=== PATIENT | female | born 1930 | race Caucasian/White ===

== ENCOUNTER 2019-07-17 16:38 | Observation (INO) ==
[2019-07-17 17:37] LABS: Basophils # 0.1 K/mcL (0.0-0.2); Basophils % 0.9 %; Eosinophils # 0.2 K/mcL (0.0-0.6); Eosinophils % 3.5 %; Hematocrit 41.5 % (35.3-44.9); Immature Granulocytes % 0.4 % (0-4); Lymphocytes # 1.7 K/mcL (0.6-4.6); Lymphocytes % 30.9 %; Mean Corpuscular HGB Conc 33.7 g/dL (31.6-35.5); Mean Corpuscular Hemoglobin 31.8 pg (28.0-33.3); Mean Corpuscular Volume 94.3 fL (83.0-100.0); Mean Platelet Volume 9.6 fL (9.4-12.4); Monocytes # 0.6 K/mcL (0.0-1.3); Monocytes % 10.8 %; Neutrophils # 2.9 K/mcL (1.6-8.9); Platelet Count 177 K/mcL (140-400); Red Cell Distribution Width 13.1 % (11.5-14.5); Segmented Neutrophils % 53.5 %; White Blood Count 5.4 K/mcL (4.3-11.1)
[2019-07-17 17:44] LABS: INR 2.1; Prothrombin Time 23.5 Seconds (9.4-12.1)
[2019-07-17 17:46] LABS: Activated Partial Thrombo Time 37.1 Seconds (26.0-36.0)
[2019-07-17 17:59] LABS: Albumin 3.5 g/dL (3.5-5.7); Albumin/Globulin Ratio 1.1 (1.1-2.2); Bilirubin,Total 1.2 mg/dL (0.3-1.0); Calcium 9.1 mg/dL (8.6-10.3); Globulin 3.1 g/dL (2.4-3.5); Potassium 4.1 mEq/L (3.5-5.1); Total Protein 6.6 g/dL (6.4-8.9)
[2019-07-17 19:30] LABS: Bilirubin,Urine Small (Negative); Blood,Urine Negative (Negative); Clarity,Urine Cloudy (Clear); Color,Urine Dark Yellow (Yellow); Glucose,Urine (UA) Normal (Normal); Ketones,Urine Negative (Negative); Leukocyte Esterase,Urine Negative (Negative); Nitrite,Urine Negative (Negative); PH,Urine 5.5 pH Units (5.0-8.0); Protein,Urine 30 mg/dL (Neg-Trace); Specific Gravity,Urine 1.028 (1.010-1.025); Urobilinogen,Urine Normal (Normal)
[2019-07-17 19:35] LABS: Bacteria,Urine None Seen per hpf (None-Few); Hyaline Casts,Urine Few per lpf (None-Few); RBC,Urine 15-30 per hpf (0-3); Squamous Epithelial Cell,Urine Many per lpf (None-Few); WBC,Urine 0-3 per hpf (0-3)
[2019-07-17] MEDS ORDERED: Naloxone 0.4 MG/ML INJ IVP PRN (23:11)
[2019-07-18 05:06] LABS: Hematocrit 39.8 % (35.3-44.9); Hemoglobin 13.1 g/dL (11.5-15.4); Mean Corpuscular HGB Conc 32.9 g/dL (31.6-35.5); Mean Corpuscular Hemoglobin 31.8 pg (28.0-33.3); Mean Corpuscular Volume 96.6 fL (83.0-100.0); Mean Platelet Volume 10.4 fL (9.4-12.4); Platelet Count 170 K/mcL (140-400); Red Blood Count 4.12 M/mcL (3.82-4.97); Red Cell Distribution Width 13.1 % (11.5-14.5); White Blood Count 5.1 K/mcL (4.3-11.1)
[2019-07-18 05:13] LABS: INR 3.5
[2019-07-18] MEDS ORDERED: 0.9 % Sodium Chloride 1,000 ML IVC ONE (05:21)
[2019-07-18 05:25] LABS: Calcium 8.8 mg/dL (8.6-10.3)
[2019-07-18] MEDS ORDERED: *HR* Rivaroxaban 10 MG TABLET PO SCH (09:00)
[2019-07-18] MEDS ORDERED: Aspirin Enteric Coated 81 MG Tablet PO SCH (09:00)
[2019-07-18 10:49] VITALS: BP 129/73
[2019-07-18] MEDS ORDERED: Menthol 9.1 MG LOZENGE PO PRN (11:30)
== END 2019-07-18 12:23 | disposition home or self-care (01) ==
LOC: 3ANU 16:38 → EMEROOARM 16:38 → SUATTDRO 20:34 → 3ANU 21:41
PROVIDERS: ADMIT Internal Medicine; ATTEND Internal Medicine

== ENCOUNTER 2022-02-21 21:46 | Inpatient (IN) ==
[2022-02-21] MEDS ORDERED: 0.9 % Sodium Chloride 1,000 ML IVC ONE (22:34)
[2022-02-21] MEDS ORDERED: cefTRIAXone 1,000 MG in 0.9 % Sodium Chloride 10 ML IVP ONE (22:36)
[2022-02-21 23:01] LABS: Immature Granulocytes % 0.3 % (0-4); Mean Corpuscular Volume 92.5 fL (83.0-100.0); Red Cell Distribution Width 13.1 % (11.5-14.5)
[2022-02-21 23:03] LABS: Basophils % 0.5 %; Hematocrit 44.7 % (35.3-44.9); Immature Platelets 5.2 % (1.1-6.1); Lymphocytes # 0.9 K/mcL (0.6-4.6); Mean Corpuscular HGB Conc 33.6 g/dL (31.6-35.5); Mean Corpuscular Hemoglobin 31.1 pg (28.0-33.3); Mean Platelet Volume 10.7 fL (9.4-12.4); Monocytes # 0.8 K/mcL (0.0-1.3); Monocytes % 13.9 %; Neutrophils # 4.2 K/mcL (1.6-8.9); Platelet Count 127 K/mcL (140-400); Red Blood Count 4.83 M/mcL (3.82-4.97); Segmented Neutrophils % 70.3 %
[2022-02-21 23:05] LABS: VBG HCO3 25 mEq/L (21-27); VBG PCO2 41 mmHg (41-51); VBG PH 7.39 pH Units (7.32-7.42); VBG PO2 53 mmHg (25-50)
[2022-02-21 23:10] LABS: Activated Partial Thrombo Time 37.9 Seconds (26.0-36.0)
[2022-02-21 23:16] LABS: INR 2.9; Prothrombin Time 32.2 Seconds (9.4-12.1)
[2022-02-21 23:44] LABS: ABG Base Excess 0 mEq/L (-2 to 3); ABG HCO3 23 mEq/L (21-27); ABG Oxygen Saturation 96 % (95-98); ABG PCO2 33 mmHg (35-45); ABG PH 7.45 pH Units (7.32-7.45); ABG PO2 77 mmHg (85-104); ABG TCO2 24 mEq/L (20-26)
[2022-02-21 23:50] LABS: Adenovirus Not Detected (Not Detect); Bordetella Pertussis Not Detected (Not Detect); Chlamydophila pneumoniae Not Detected (Not Detect); Coronavirus 229E Not Detected (Not Detect); Coronavirus HKU1 Not Detected (Not Detect); Coronavirus NL63 Not Detected (Not Detect); Coronavirus OC43 Not Detected (Not Detect); Human Metapneumovirus Not Detected (Not Detect); Human Rhinovirus/Enterovirus Not Detected (Not Detect); Influenza A Subtype 2009 H1 Not Detected (Not Detect); Influenza B Not Detected (Not Detect); Parainfluenza Virus 1 Not Detected (Not Detect); Parainfluenza Virus 2 Not Detected (Not Detect); Parainfluenza Virus 3 Not Detected (Not Detect); Parainfluenza Virus 4 Not Detected (Not Detect); Respiratory Syncytial Virus Not Detected (Not Detect); SARS-CoV-2 DETECTED (Not Detect)
[2022-02-21 23:51] LABS: Mycoplasma pneumoniae Not Detected (Not Detect)
[2022-02-21 23:52] LABS: Troponin I 0.04 ng/mL (< 0.04)
[2022-02-21 23:55] LABS: Albumin 3.6 g/dL (3.5-5.7); Bilirubin,Direct 0.3 mg/dL (0.0-0.2); Bilirubin,Indirect 1.1 mg/dL (0.0-1.0); Bilirubin,Total 1.4 mg/dL (0.3-1.0); Calcium 9.1 mg/dL (8.6-10.3); Globulin 3.5 g/dL (2.4-3.5); Magnesium 1.8 mg/dL (1.6-2.6); Phosphorous 2.5 mg/dL (2.7-4.5); Potassium 3.8 mEq/L (3.5-5.1); Total Protein 7.1 g/dL (6.4-8.9)
[2022-02-22] MEDS ORDERED: *HR* HYDROcodone/Acet 5/325 mg TABLET PO PRN (00:43)
[2022-02-22] MEDS ORDERED: Naloxone 0.4 MG/ML INJ IVP PRN (00:43)
[2022-02-22] MEDS ORDERED: Melatonin 3 MG TABLET PO PRN (00:43)
[2022-02-22] MEDS ORDERED: Acetaminophen 325 MG TABLET PO PRN (00:43)
[2022-02-22] MEDS ORDERED: Saliva Stimulant 44.3ml BOTTLE PO PRN (00:46)
[2022-02-22] MEDS ORDERED: Saline Nasal Spray 44 ML BOTTLE NS PRN (00:46)
[2022-02-22] MEDS: Ipratropium 1 PUFF INHALER IH SCH ×7 (02:13→23:02)
[2022-02-22 02:33] LABS: Bacteria,Urine Few per hpf (None-Few); Bilirubin,Urine Negative (Negative); Blood,Urine Moderate (Negative); Clarity,Urine Turbid (Clear); Color,Urine Light-Yellow (Yellow); Glucose,Urine (UA) Normal (Normal); Ketones,Urine Negative (Negative); Leukocyte Esterase,Urine Trace (Negative); Mucus,Urine Few per lpf (None-Few); Nitrite,Urine Negative (Negative); Protein,Urine 70 mg/dL (Neg-Trace); Specific Gravity,Urine 1.015 (1.010-1.025); Squamous Epithelial Cell,Urine Few per hpf (None-Few); Urobilinogen,Urine Normal (Normal)
[2022-02-22] MEDS ORDERED: Chloraseptic Spray 177 ML BOTTLE MM PRN (02:57)
[2022-02-22 03:30] LABS: C-Reactive Protein 72 mg/L (Less than 10); Lactate Dehydrogenase 166 Units/L (140-271)
[2022-02-22 03:31] LABS: Magnesium 1.8 mg/dL (1.6-2.6); Phosphorous 3.1 mg/dL (2.7-4.5)
[2022-02-22 03:36] LABS: Albumin 3.6 g/dL (3.5-5.7); Bilirubin,Total 1.2 mg/dL (0.3-1.0); Globulin 3.7 g/dL (2.4-3.5); Potassium 3.7 mEq/L (3.5-5.1); Total Protein 7.3 g/dL (6.4-8.9)
[2022-02-22 03:47] LABS: ABG Base Excess -1 mEq/L (-2 to 3); ABG HCO3 23 mEq/L (21-27); ABG Oxygen Saturation 99 % (95-98); ABG PCO2 34 mmHg (35-45); ABG PH 7.43 pH Units (7.32-7.45); ABG PO2 111 mmHg (85-104); ABG TCO2 24 mEq/L (20-26)
[2022-02-22] MEDS ORDERED: Furosemide 20 MG/2 ML VIAL IVP ONE (03:58)
[2022-02-22] MEDS ORDERED: Remdesivir 200 MG in 0.9 % Sodium Chloride 100 ML IVPB ONE (04:00)
[2022-02-22] MEDS ORDERED: Perflutren Lipid Microsphere 1.3 ML in 0.9 % Sodium Chloride 8.7 ML IVP PRN (04:14)
[2022-02-22 05:58] LABS: Ferritin 173 ng/mL (10-120)
[2022-02-22] MEDS: cefTRIAXone 1,000 MG in 0.9 % Sodium Chloride 10 ML IVP SCH (08:58)
[2022-02-22] MEDS: Dexamethasone Sodium Phos/PF 10 MG/ML VIAL IVP SCH (08:59)
[2022-02-22] MEDS ORDERED: Chlorhexidine Rinse 15 ML MOUTHWASH MM SCH (09:00)
[2022-02-22] MEDS ORDERED: Aspirin Enteric Coated 81 MG Tablet PO SCH (09:00)
[2022-02-22] MEDS: Pantoprazole 40 MG VIAL IVP SCH (09:01)
[2022-02-22] MEDS: Artificial Tears SOLN 15 ML BOTTLE BOTH EYES SCH ×2 (09:10→20:21)
[2022-02-22] MEDS: Azithromycin 250 MG TABLET PO SCH (09:14)
[2022-02-22] MEDS: Multivit/Ca/Min/Fe/FA 1 TAB TABLET PO SCH (09:14)
[2022-02-22] MEDS: Cholecalciferol (D-3) 1,000 UNIT (25MCG) TABLET PO SCH (09:15)
[2022-02-22] MEDS: Metoprolol XL (24 HR) Succ 50 MG TAB.ER.24H PO SCH (09:15)
[2022-02-22 09:38] LABS: INR 1.9; Prothrombin Time 20.7 Seconds (9.4-12.1)
[2022-02-22 09:40] LABS: Activated Partial Thrombo Time 38.1 Seconds (26.0-36.0)
[2022-02-22] MEDS ORDERED: *HR* Rivaroxaban 15 MG TABLET PO SCH (17:00)
[2022-02-23] MEDS: Ipratropium 1 PUFF INHALER IH SCH ×6 (03:49→22:41)
[2022-02-23] MEDS ORDERED: Furosemide 20 MG/2 ML VIAL IVP ONE (04:17)
[2022-02-23] MEDS: Benzonatate 100 MG CAPSULE PO PRN (05:13)
[2022-02-23 05:17] LABS: Basophils % 0.1 %; Hemoglobin 15.9 g/dL (11.5-15.4); Immature Granulocytes % 0.3 % (0-4); Mean Corpuscular HGB Conc 33.8 g/dL (31.6-35.5); Mean Corpuscular Hemoglobin 31.1 pg (28.0-33.3); Mean Platelet Volume 11.4 fL (9.4-12.4); Monocytes # 0.7 K/mcL (0.0-1.3); Monocytes % 8.1 %; Neutrophils # 7.3 K/mcL (1.6-8.9); Platelet Count 168 K/mcL (140-400); Red Blood Count 5.11 M/mcL (3.82-4.97); Red Cell Distribution Width 13.3 % (11.5-14.5); Segmented Neutrophils % 80.5 %
[2022-02-23 05:21] LABS: White Blood Count 9.1 K/mcL (4.3-11.1)
[2022-02-23] MEDS: Remdesivir 100 MG in 0.9 % Sodium Chloride 100 ML IVPB SCH (05:26)
[2022-02-23 05:39] LABS: Albumin 3.7 g/dL (3.5-5.7); Albumin/Globulin Ratio 0.9 (1.1-2.2); Bilirubin,Total 0.8 mg/dL (0.3-1.0); Calcium 9.6 mg/dL (8.6-10.3); Globulin 4.2 g/dL (2.4-3.5); Potassium 3.6 mEq/L (3.5-5.1); Total Protein 7.9 g/dL (6.4-8.9); Troponin I 0.05 ng/mL (< 0.04)
[2022-02-23] MEDS: cefTRIAXone 1,000 MG in 0.9 % Sodium Chloride 10 ML IVP SCH (07:20)
[2022-02-23] MEDS: Pantoprazole 40 MG VIAL IVP SCH (07:21)
[2022-02-23] MEDS: Dexamethasone Sodium Phos/PF 10 MG/ML VIAL IVP SCH (07:21)
[2022-02-23] MEDS: Artificial Tears SOLN 15 ML BOTTLE BOTH EYES SCH ×2 (07:23→20:26)
[2022-02-23] MEDS: Azithromycin 250 MG TABLET PO SCH (07:35)
[2022-02-23] MEDS: Cholecalciferol (D-3) 1,000 UNIT (25MCG) TABLET PO SCH (07:35)
[2022-02-23] MEDS: Metoprolol XL (24 HR) Succ 50 MG TAB.ER.24H PO SCH (07:36)
[2022-02-23] MEDS: Aspirin 81 MG TAB.CHEW PO SCH (07:42)
[2022-02-23] MEDS: Multivit/Ca/Min/Fe/FA 1 TAB TABLET PO SCH (07:42)
[2022-02-23] MEDS: 0.9 % Sodium Chloride 1,000 ML IVC SCH ×2 (08:59→22:52)
[2022-02-23 10:14] LABS: Protein/Creatinine Ratio,Urine 0.63 mg/mg (0.00-0.20); Sodium, Urine 94.8 mEq/L
[2022-02-23 10:42] LABS: Bilirubin,Urine Negative (Negative); Blood,Urine Trace (Negative); Budding Yeast,Urine Few per hpf (None Seen); Clarity,Urine Clear (Clear); Color,Urine Yellow (Yellow); Glucose,Urine (UA) Normal (Normal); Granular Casts,Urine Few per lpf (None Seen); Ketones,Urine Negative (Negative); Leukocyte Esterase,Urine Negative (Negative); Mucus,Urine Few per lpf (None-Few); Nitrite,Urine Negative (Negative); PH,Urine 5.5 pH Units (5.0-8.0); Protein,Urine Trace mg/dL (Neg-Trace); RBC,Urine 0-3 per hpf (0-3); Specific Gravity,Urine 1.013 (1.010-1.025); Transitional Epi Cells,Urine Few per hpf (None-Few); Urobilinogen,Urine Normal (Normal); WBC,Urine 0-3 per hpf (0-3)
[2022-02-23] MEDS ORDERED: *HR* Heparin 5,000 UNIT/ML VIAL IVP ONE (17:00)
[2022-02-23] MEDS ORDERED: *HR* Heparin 5,000 UNIT/ML VIAL IVP PRN ×2 (17:00)
[2022-02-23 17:06] LABS: Activated Partial Thrombo Time 32.1 Seconds (26.0-36.0)
[2022-02-23] MEDS: Heparin 25,000UNIT/250ML 1/2NS 25,000 UNIT/250 ML IV.SOLN IVC SCH (17:41)
[2022-02-24 00:20] LABS: Basophils % 0.1 %; Hematocrit 40.3 % (35.3-44.9); Immature Granulocytes % 0.5 % (0-4); Lymphocytes # 0.7 K/mcL (0.6-4.6); Mean Corpuscular HGB Conc 33.7 g/dL (31.6-35.5); Mean Corpuscular Hemoglobin 31.1 pg (28.0-33.3); Mean Corpuscular Volume 92.2 fL (83.0-100.0); Mean Platelet Volume 11.2 fL (9.4-12.4); Monocytes # 0.8 K/mcL (0.0-1.3); Monocytes % 6.8 %; Neutrophils # 9.6 K/mcL (1.6-8.9); Platelet Count 154 K/mcL (140-400); Red Blood Count 4.37 M/mcL (3.82-4.97); Red Cell Distribution Width 13.7 % (11.5-14.5); Segmented Neutrophils % 86.6 %
[2022-02-24 00:23] LABS: Hemoglobin 13.6 g/dL (11.5-15.4)
[2022-02-24 00:28] LABS: Albumin/Globulin Ratio 0.8 (1.1-2.2); Bilirubin,Total 0.5 mg/dL (0.3-1.0); Calcium 8.7 mg/dL (8.6-10.3); Globulin 3.6 g/dL (2.4-3.5); Potassium 3.8 mEq/L (3.5-5.1); Total Protein 6.6 g/dL (6.4-8.9)
[2022-02-24] MEDS: Ipratropium 1 PUFF INHALER IH SCH ×7 (03:41→22:50)
[2022-02-24] MEDS: Remdesivir 100 MG in 0.9 % Sodium Chloride 100 ML IVPB SCH (04:00)
[2022-02-24] MEDS: Dexamethasone Sodium Phos/PF 10 MG/ML VIAL IVP SCH (08:24)
[2022-02-24] MEDS: Pantoprazole 40 MG VIAL IVP SCH (08:24)
[2022-02-24] MEDS: Artificial Tears SOLN 15 ML BOTTLE BOTH EYES SCH ×2 (08:24→21:00)
[2022-02-24] MEDS: Aspirin 81 MG TAB.CHEW PO SCH (08:24)
[2022-02-24] MEDS: Metoprolol XL (24 HR) Succ 50 MG TAB.ER.24H PO SCH (08:25)
[2022-02-24] MEDS: Multivit/Ca/Min/Fe/FA 1 TAB TABLET PO SCH (08:25)
[2022-02-24] MEDS: Cholecalciferol (D-3) 1,000 UNIT (25MCG) TABLET PO SCH (08:25)
[2022-02-24] MEDS: cefTRIAXone 1,000 MG in 0.9 % Sodium Chloride 10 ML IVP SCH (08:25)
[2022-02-24] MEDS: Azithromycin 250 MG TABLET PO SCH (08:25)
[2022-02-24] MEDS: Benzonatate 100 MG CAPSULE PO PRN (09:00)
[2022-02-24] MEDS: Ondansetron 4 MG/2 ML VIAL IVP PRN (09:43)
[2022-02-24] MEDS ORDERED: Ondansetron 4 MG/2 ML VIAL IVP ONE (10:39)
[2022-02-24] MEDS: 0.9 % Sodium Chloride 1,000 ML IVC SCH (11:53)
[2022-02-24 17:22] LABS: Basophils % 0.1 %; Hematocrit 39.4 % (35.3-44.9); Immature Granulocytes % 0.6 % (0-4); Lymphocytes # 0.6 K/mcL (0.6-4.6); Lymphocytes % 4.7 %; Mean Corpuscular Hemoglobin 30.8 pg (28.0-33.3); Mean Corpuscular Volume 93.4 fL (83.0-100.0); Mean Platelet Volume 11.3 fL (9.4-12.4); Monocytes # 0.5 K/mcL (0.0-1.3); Monocytes % 3.9 %; Neutrophils # 10.6 K/mcL (1.6-8.9); Platelet Count 160 K/mcL (140-400); Red Blood Count 4.22 M/mcL (3.82-4.97); Red Cell Distribution Width 13.9 % (11.5-14.5); Segmented Neutrophils % 90.7 %; White Blood Count 11.7 K/mcL (4.3-11.1)
[2022-02-24 17:31] LABS: Calcium 8.4 mg/dL (8.6-10.3); Potassium 4.1 mEq/L (3.5-5.1)
[2022-02-24] MEDS: Heparin 25,000UNIT/250ML 1/2NS 25,000 UNIT/250 ML IV.SOLN IVC SCH (18:01)
[2022-02-25] MEDS: 0.9 % Sodium Chloride 1,000 ML IVC SCH ×2 (00:13→19:20)
[2022-02-25] MEDS: Ipratropium 1 PUFF INHALER IH SCH ×6 (04:10→23:08)
[2022-02-25 06:52] LABS: Basophils % 0.1 %; Hemoglobin 12.6 g/dL (11.5-15.4); Immature Granulocytes % 0.7 % (0-4); Lymphocytes # 0.6 K/mcL (0.6-4.6); Lymphocytes % 5.6 %; Mean Corpuscular HGB Conc 33.2 g/dL (31.6-35.5); Mean Corpuscular Hemoglobin 30.9 pg (28.0-33.3); Mean Corpuscular Volume 93.1 fL (83.0-100.0); Mean Platelet Volume 11.2 fL (9.4-12.4); Monocytes # 0.6 K/mcL (0.0-1.3); Monocytes % 5.7 %; Neutrophils # 9.9 K/mcL (1.6-8.9); Platelet Count 162 K/mcL (140-400); Red Blood Count 4.08 M/mcL (3.82-4.97); Red Cell Distribution Width 14.1 % (11.5-14.5); Segmented Neutrophils % 87.9 %; White Blood Count 11.3 K/mcL (4.3-11.1)
[2022-02-25 07:12] LABS: Albumin 2.9 g/dL (3.5-5.7); Bilirubin,Total 0.4 mg/dL (0.3-1.0); Calcium 8.2 mg/dL (8.6-10.3); Potassium 4.2 mEq/L (3.5-5.1); Total Protein 5.9 g/dL (6.4-8.9)
[2022-02-25] MEDS: cefTRIAXone 1,000 MG in 0.9 % Sodium Chloride 10 ML IVP SCH (09:08)
[2022-02-25] MEDS: Artificial Tears SOLN 15 ML BOTTLE BOTH EYES SCH ×2 (09:08→19:32)
[2022-02-25] MEDS: Metoprolol XL (24 HR) Succ 50 MG TAB.ER.24H PO SCH (09:09)
[2022-02-25] MEDS: Aspirin 81 MG TAB.CHEW PO SCH (09:09)
[2022-02-25] MEDS: Dexamethasone Sodium Phos/PF 10 MG/ML VIAL IVP SCH (09:09)
[2022-02-25] MEDS: Azithromycin 250 MG TABLET PO SCH (09:09)
[2022-02-25] MEDS: Multivit/Ca/Min/Fe/FA 1 TAB TABLET PO SCH (09:09)
[2022-02-25] MEDS: Cholecalciferol (D-3) 1,000 UNIT (25MCG) TABLET PO SCH (09:09)
[2022-02-25] MEDS: Ondansetron 4 MG/2 ML VIAL IVP PRN (09:16)
[2022-02-25] MEDS ORDERED: Lidocaine Jelly 6ml 1 APPL/6 ML JEL.PF.APP TP ONE (10:52)
[2022-02-26 03:20] LABS: Albumin 2.7 g/dL (3.5-5.7); Albumin/Globulin Ratio 0.9 (1.1-2.2); Bilirubin,Total 0.3 mg/dL (0.3-1.0); Globulin 2.9 g/dL (2.4-3.5); Magnesium 2.3 mg/dL (1.6-2.6); Phosphorous 5.1 mg/dL (2.7-4.5); Potassium 4.3 mEq/L (3.5-5.1); Total Protein 5.6 g/dL (6.4-8.9)
[2022-02-26] MEDS: Ipratropium 1 PUFF INHALER IH SCH ×6 (04:49→22:58)
[2022-02-26] MEDS: 0.9 % Sodium Chloride 1,000 ML IVC SCH ×2 (09:11→16:01)
[2022-02-26] MEDS: Aspirin 81 MG TAB.CHEW PO SCH (09:12)
[2022-02-26] MEDS: cefTRIAXone 1,000 MG in 0.9 % Sodium Chloride 10 ML IVP SCH (09:12)
[2022-02-26] MEDS: Artificial Tears SOLN 15 ML BOTTLE BOTH EYES SCH ×2 (09:12→21:24)
[2022-02-26] MEDS: Dexamethasone Sodium Phos/PF 10 MG/ML VIAL IVP SCH (09:12)
[2022-02-26] MEDS: Metoprolol XL (24 HR) Succ 50 MG TAB.ER.24H PO SCH (09:13)
[2022-02-26] MEDS: Multivit/Ca/Min/Fe/FA 1 TAB TABLET PO SCH (09:13)
[2022-02-26] MEDS: Cholecalciferol (D-3) 1,000 UNIT (25MCG) TABLET PO SCH (09:13)
[2022-02-26] MEDS: Azithromycin 250 MG TABLET PO SCH (09:13)
[2022-02-26] MEDS: Apixaban 2.5 MG TABLET PO SCH ×2 (11:35→21:19)
[2022-02-27 03:47] LABS: Calcium 8.4 mg/dL (8.6-10.3); Potassium 4.2 mEq/L (3.5-5.1)
[2022-02-27] MEDS: Ipratropium 1 PUFF INHALER IH SCH ×3 (04:04→11:35)
[2022-02-27] MEDS: Ondansetron 4 MG/2 ML VIAL IVP PRN (08:48)
[2022-02-27] MEDS: Dexamethasone Sodium Phos/PF 10 MG/ML VIAL IVP SCH (08:50)
[2022-02-27] MEDS: cefTRIAXone 1,000 MG in 0.9 % Sodium Chloride 10 ML IVP SCH (08:51)
[2022-02-27] MEDS: Metoprolol XL (24 HR) Succ 50 MG TAB.ER.24H PO SCH (08:57)
[2022-02-27] MEDS: Apixaban 2.5 MG TABLET PO SCH ×2 (08:58→20:06)
[2022-02-27] MEDS: 0.9 % Sodium Chloride 1,000 ML IVC SCH ×2 (10:52→23:06)
[2022-02-27] MEDS: Multivit/Ca/Min/Fe/FA 1 TAB TABLET PO SCH (10:54)
[2022-02-27] MEDS: Aspirin 81 MG TAB.CHEW PO SCH (10:54)
[2022-02-27] MEDS: Artificial Tears SOLN 15 ML BOTTLE BOTH EYES SCH ×2 (10:54→20:07)
[2022-02-27] MEDS: Cholecalciferol (D-3) 1,000 UNIT (25MCG) TABLET PO SCH (11:37)
[2022-02-27] MEDS: Azithromycin 250 MG TABLET PO SCH (17:24)
[2022-02-28 04:06] LABS: Hematocrit 36.4 % (35.3-44.9); Hemoglobin 12.1 g/dL (11.5-15.4); Mean Corpuscular HGB Conc 33.2 g/dL (31.6-35.5); Mean Corpuscular Hemoglobin 30.6 pg (28.0-33.3); Mean Corpuscular Volume 92.2 fL (83.0-100.0); Mean Platelet Volume 10.8 fL (9.4-12.4); Platelet Count 162 K/mcL (140-400); Red Blood Count 3.95 M/mcL (3.82-4.97); Red Cell Distribution Width 13.6 % (11.5-14.5); White Blood Count 7.7 K/mcL (4.3-11.1)
[2022-02-28 04:29] LABS: Calcium 8.4 mg/dL (8.6-10.3)
[2022-02-28] MEDS ORDERED: dexAMETHasone 4 MG TABLET PO SCH (09:00)
[2022-02-28] MEDS: Apixaban 2.5 MG TABLET PO SCH (09:57)
[2022-02-28] MEDS: Artificial Tears SOLN 15 ML BOTTLE BOTH EYES SCH (09:57)
[2022-02-28] MEDS: Aspirin 81 MG TAB.CHEW PO SCH (09:58)
[2022-02-28] MEDS: Metoprolol XL (24 HR) Succ 50 MG TAB.ER.24H PO SCH (09:58)
[2022-02-28] MEDS: Cholecalciferol (D-3) 1,000 UNIT (25MCG) TABLET PO SCH (09:58)
[2022-02-28] MEDS: Multivit/Ca/Min/Fe/FA 1 TAB TABLET PO SCH (11:58)
[2022-02-28] MEDS: 0.9 % Sodium Chloride 1,000 ML IVC SCH (13:57)
[2022-02-28 16:51] VITALS: PULSE 74; TEMP 97.9; O2SAT 93
[2022-02-28 17:06] VITALS: BP 149/77
== END 2022-02-28 18:40 | disposition other institution (70) | DRG 871 ==
LOC: EMEROOARM 21:46 → 2NENU 21:46 → SUATTDRO 02-22 00:52
PROVIDERS: ADMIT Internal Medicine; ATTEND Internal Medicine